=== PATIENT | female | born 1995 | race Caucasian/White ===

== ENCOUNTER 2021-08-12 23:11 | Emergency (ER) | payer OTHER ==
[~2021-08-12] VITALS: Ht 165.1 cm; Wt 167.8 kg
[2021-08-12 23:11] VITALS: BP_SYST 132
[2021-08-13] MEDS ORDERED: KETAMINE 30 MG/3 ML SYRINGE IVP ONE
[2021-08-13] MEDS ORDERED: IBUP-1971 PO (02:59)
[2021-08-13 03:30] VITALS: BP_SYST 155
== END 2021-08-13 03:30 | disposition home or self-care (01) ==
LOC: SED 23:11
DX: S93.402A Sprain of unspecified ligament of left ankle, initial encounter (principal); S93.602A Unspecified sprain of left foot, initial encounter; Z88.0 Allergy status to penicillin; W10.9XXA Fall (on) (from) unspecified stairs and steps, initial encounter; Y93.89 Activity, other specified; Y92.89 Other specified places as the place of occurrence of the external cause; Y99.8 Other external cause status
CPT/HCPCS: 73590-TC; 96374; 99285